=== PATIENT | male | born 1965 | race Caucasian/White ===

== ENCOUNTER 2022-10-30 06:20 | Day surgery (SDC) | payer BC ==
[~2022-10-30] VITALS: Ht 180.3 cm; Wt 102.0 kg
[2022-10-30] MEDS ORDERED: LISI20 PO (06:26)
[2022-10-30] MEDS ORDERED: ALLO300 PO (06:26)
[2022-10-30] MEDS ORDERED: METO25ER PO (06:26)
[2022-10-30] MEDS ORDERED: XARELTO20 MG PO (06:27)
[2022-10-30] MEDS ORDERED: PRAV20 PO (06:27)
--- NOTE | 2022-10-30 08:12 | NUR ---
PT TOLERATES CARDIOVERSION WELL. VSS. NADN. PT DENIES PAIN OR NEEDS. PT IV DC'D. CATH INTACT. PRESSURE DSG APPLIED. NO BLEEDING NOTED. PT VERBALIZES UNDERSTANDING WRITTEN INSTRUCTIONS. PT DC TO HOME VIA WC BY SON
== END 2022-10-30 22:53 | disposition home or self-care (01) ==
LOC: MHTC 06:20
DX: I48.0 Paroxysmal atrial fibrillation (principal); R06.00 Dyspnea, unspecified; E78.5 Hyperlipidemia, unspecified; E66.9 Obesity, unspecified; I34.0 Nonrheumatic mitral (valve) insufficiency; I10 Essential (primary) hypertension; Z68.32 Body mass index [BMI] 32.0-32.9, adult
CPT/HCPCS: 92960; 93005; 93010; A9270; J2704; J7030